=== PATIENT | male | born 1990 | race Caucasian/White ===

== ENCOUNTER 2019-10-07 14:53 | Emergency (ER) | payer MEDICAID ==
[~2019-10-07] VITALS: Ht 167.6 cm; Wt 82.7 kg
[2019-10-07] MEDS ORDERED: CLARITIN 1010 MG/TAB PO (17:36)
[2019-10-07 18:52] LABS: COLLECTION METHOD CLEAN CATCH
[2019-10-07 18:57] LABS: BASO % 0.2 % (0.0-2.0); EOS % 0.5 % (0-4.0); GRAN # 4.4 (1.4-6.5); GRAN % 71.7 % (42.2-75.2); HEMATOCRIT 49.2 % (42.0-52.0); HEMOGLOBIN 16.6 g/dl (13.5-18.0); LYMPH # 0.8 (1.2-3.4); LYMPH % 13.5 % (20.0-51.0); MEAN CELL VOLUME 92 fl (80.0-100.0); MEAN CORPUSCULAR HEMOGLOBIN 31 pg (27.0-31.0); MEAN CORPUSCULAR HGB CONC 34 g/dl (33.0-37.0); MEAN PLATELET VOLUME 10.4 fl (7.4-10.4); MONO # 0.9 (0.1-0.6); MONO % 13.8 % (1.7-9.3); PLATELET COUNT 191 K/mm3 (130-400); RED BLOOD COUNT 5.34 M/mm3 (4.20-5.60)
[2019-10-07 19:02] LABS: MUCOUS Present /lpf; PH 5 (5-8); SQUAMOUS EPITHELIAL 0-2 /hpf; URINE APPEARANCE Clear; URINE BACTERIA None Seen /hpf; URINE BILIRUBIN Negative (NEGATIVE); URINE BLOOD 1+ (NEGATIVE); URINE COLOR Amber; URINE GLUCOSE Negative (NEGATIVE); URINE KETONE Trace (NEGATIVE); URINE LEUKOCYTE ESTERASE Negative (NEGATIVE); URINE NITRATE Negative (NEGATIVE); URINE PROTEIN(semi-quant) 1+ (NEGATIVE); URINE RBC 0-2 /hpf
[2019-10-07 19:11] LABS: STREP SCREEN NEGATIVE
[2019-10-07 19:16] LABS: ALBUMIN 4.3 gm/dL (3.5-5.0); C-REACTIVE PROTEIN 3.4 mg/dL (0.0-0.9); CALCIUM 8.8 mg/dL (8.4-10.2); CREATININE, serum 1.19 (0.66-1.25); POTASSIUM 4.1 mmol/L (3.4-5.0); TOTAL PROTEIN 7.5 gm/dL (6.4-8.2)
[2019-10-07] MEDS ORDERED: ZOFRAN ODT4 MG PO (19:44)
[2019-10-07 19:58] VITALS: BP 112/44; PULSE 82; TEMP 98.1
== END 2019-10-07 20:00 | disposition home or self-care (01) ==
LOC: COL.ER 14:53
PROVIDERS: Physician Assistant
DX: R10.84 Generalized abdominal pain (principal); R19.7 Diarrhea, unspecified; R11.0 Nausea
CPT/HCPCS: J1885; J2405; J7030

== ENCOUNTER 2019-11-23 08:54 | Emergency (ER) | payer MEDICAID ==
[~2019-11-23] VITALS: Ht 167.6 cm; Wt 84.1 kg
[~2019-11-23 08:54] MED LIST: CLARITIN 1010 MG/TAB PO; ZOFRAN ODT4 MG PO
[2019-11-23 09:09] VITALS: BP 126/74; TEMP 97.2
[2019-11-23 09:53] VITALS: PULSE 70
== END 2019-11-23 10:00 | disposition home or self-care (01) ==
LOC: COL.ER 08:54
DX: R21 Rash and other nonspecific skin eruption (principal)

== ENCOUNTER 2020-05-13 23:23 | Emergency (ER) | payer MEDICAID ==
[~2020-05-13] VITALS: Ht 167.6 cm; Wt 75.9 kg
[2020-05-13 23:25] VITALS: BP 148/69; TEMP 98
[2020-05-14 00:35] VITALS: PULSE 71
== END 2020-05-14 00:34 | disposition home or self-care (01) ==
LOC: COL.ER 23:23
DX: S61.212A Laceration without foreign body of right middle finger without damage to nail, initial encounter (principal); S60.041A Contusion of right ring finger without damage to nail, initial encounter; Z23 Encounter for immunization; W27.4XXA Contact with kitchen utensil, initial encounter; Y92.59 Other trade areas as the place of occurrence of the external cause

== ENCOUNTER → 2021-03-31 | Outpatient (CLI) | payer MEDICAID | LOC: COL.RAD 08:33 | DX: M51.36 Other intervertebral disc degeneration, lumbar region (principal) ==

== ENCOUNTER 2021-09-01 13:14 | Emergency (ER) | payer MEDICAID ==
[~2021-09-01] VITALS: Ht 167.6 cm; Wt 68.2 kg
[2021-09-01 13:54] VITALS: TEMP 98.6
[2021-09-01 15:48] VITALS: BP 145/70; PULSE 71
== END 2021-09-01 15:48 | disposition home or self-care (01) ==
LOC: COL.ER 13:14
DX: H91.91 Unspecified hearing loss, right ear (principal); R42 Dizziness and giddiness; Z20.822 Contact with and (suspected) exposure to COVID-19

== ENCOUNTER 2022-04-03 21:47 | Emergency (ER) | payer MEDICAID ==
[~2022-04-03] VITALS: Ht 165.1 cm; Wt 85.0 kg
[2022-04-03 22:06] VITALS: TEMP 99
[2022-04-04 00:47] VITALS: BP 137/86; PULSE 62
== END 2022-04-04 00:47 | disposition home or self-care (01) ==
LOC: COL.ER 21:47
DX: S06.9X9A Unspecified intracranial injury with loss of consciousness of unspecified duration, initial encounter (principal); S63.502A Unspecified sprain of left wrist, initial encounter; S13.9XXA Sprain of joints and ligaments of unspecified parts of neck, initial encounter; W17.89XA Other fall from one level to another, initial encounter; W22.8XXA Striking against or struck by other objects, initial encounter; Y93.67 Activity, basketball

== ENCOUNTER 2022-06-30 11:06 | Emergency (ER) | payer BC, MEDICAID ==
[2022-06-30 11:15] VITALS: BP 141/87; TEMP 97.5
[2022-06-30 12:12] VITALS: PULSE 69
== END 2022-06-30 12:12 | disposition home or self-care (01) ==
LOC: COL.ER 11:06
DX: S61.213A Laceration without foreign body of left middle finger without damage to nail, initial encounter (principal); Z23 Encounter for immunization; Y28.1XXA Contact with knife, undetermined intent, initial encounter

== ENCOUNTER 2024-06-06 12:21 | Emergency (ER) | payer OTHER ==
[~2024-06-06] VITALS: Ht 167.6 cm; Wt 81.8 kg
[2024-06-06 12:33] VITALS: BP 119/78; TEMP 98.4
[2024-06-06 13:08] LABS: STREP A NEGATIVE
[2024-06-06 13:30] VITALS: PULSE 67
== END 2024-06-06 13:30 | disposition home or self-care (01) ==
LOC: COL.ER 12:21
PROVIDERS: Nurse Practitioner
DX: B34.9 Viral infection, unspecified (principal); J02.9 Acute pharyngitis, unspecified; R53.83 Other fatigue; R05.9 Cough, unspecified